=== PATIENT | male | born 1950 ===

== ENCOUNTER 2025-05-17 15:40 | Outpatient (CLI) | payer MEDICARE, SELFPAY | END 2025-05-17 15:41 | disposition home or self-care (01) | LOC: RAD-BREN 15:40 → RAD 15:40 → RAD-BREN 15:41 | PROVIDERS: ATTEND Family Medicine | DX: R05.9 Cough, unspecified (principal); J90 Pleural effusion, not elsewhere classified; Z87.01 Personal history of pneumonia (recurrent) | CPT/HCPCS: 71046 ==